=== PATIENT | female | born 1970 | race African-American/Black ===

== ENCOUNTER 2017-09-28 11:57 | Observation (INO) | payer BC ==
--- NOTE | 2017-09-28 12:23 | ER Document Report ---
ED Medical Screen (RME) - General Chief Complaint: Chest Pain Stated Complaint: CHEST PRESSURE Time Seen by Provider: 09/28/17 12:19 Notes: 46-year-old female patient with chest pain off and on for months, worse today. Today felt heavier in the anterior chest with pain going to his left shoulder. Strong family history hypertension and 2 grandparents that in their 40s from MIs. I have greeted and performed a rapid initial assessment of this patient. A comprehensive ED assessment and evaluation of the patient, analysis of test results and completion of the medical decision making process will be conducted by additional ED providers. TRAVEL OUTSIDE OF THE [place] IN LAST 30 DAYS: No - Related Data Allergies/Adverse Reactions: No Known Allergies Allergy (Verified 09/28/17 11:58) Past Medical History - Social History Chew tobacco use (# tins/day): No Frequency of alcohol use: None Drug Abuse: None Pulmonary Medical History: Reports: Hx Bronchitis Renal/ Medical History: Denies: Hx Peritoneal Dialysis Musculoskeltal Medical History: Reports Hx Musculoskeletal Trauma - recent fx right foot Traumatic Medical History: Reports: Hx Fractures - right foot Past Surgical History: Reports: Hx Hysterectomy, Hx Tubal Ligation - Immunizations Hx Diphtheria, Pertussis, Tetanus Vaccination: Yes Physical Exam - Vital signs Vitals: Temp Pulse Resp BP Pulse Ox 99.2 F 70 16 142/72 H 98 09/28/17 12:11 09/28/17 12:11 09/28/17 12:11 09/28/17 12:11 09/28/17 12:11 Course - Vital Signs Vital signs: Temp Pulse Resp BP Pulse Ox 99.2 F 70 16 142/72 H 98 09/28/17 12:11 09/28/17 12:11 09/28/17 12:11 09/28/17 12:11 09/28/17 12:11
--- NOTE | 2017-09-28 12:36 | EKG REPORT ---
SEVERITY:- ABNORMAL ECG - SINUS RHYTHM LEFT AXIS DEVIATION PROBABLE LEFT VENTRICULAR HYPERTROPHY : Confirmed by: Fatmata Abrams MD 28-Sep-2017 12:35:15
[2017-09-28 12:46] LABS: ABSOLUTE BASOPHILS # (AUTO) 0.1 10^3/uL (0.0-0.2); ABSOLUTE EOSINOPHILS # (AUTO) 0.2 10^3/uL (0.0-0.6); ABSOLUTE LYMPHOCYTES (AUTO) 2.3 10^3/uL (0.5-4.7); ABSOLUTE MONOCYTES (AUTO) 0.3 10^3/uL (0.1-1.4); ABSOLUTE NEUT (AUTO) 2.5 10^3/uL (1.7-8.2); BASOPHILS % (AUTO) 1.7 % (0-2); EOSINOPHILS % (AUTO) 3.2 % (0-6); HEMATOCRIT 38.2 % (36.0-47.0); HEMOGLOBIN 12.5 g/dL (12.0-15.5); LYMPHOCYTES % (AUTO) 42.4 % (13-45); MEAN CORPUSCULAR HEMOGLOBIN 28.8 pg (27.0-33.4); MEAN CORPUSCULAR HGB CONC 32.7 g/dL (32.0-36.0); MEAN CORPUSCULAR VOLUME 88 fl (80-97); MONOCYTES % (AUTO) 6.3 % (3-13); PLATELET COUNT 237 10^3/uL (150-450); RED BLOOD COUNT 4.33 10^6/uL (3.72-5.28); RED CELL DISTRIBUTION WIDTH 14.5 % (11.5-14.0); SEGMENTED NEUTROPHILS % (AUTO) 46.4 % (42-78); TOTAL CELLS COUNTED % (AUTO) 100 %; WHITE BLOOD COUNT 5.4 10^3/uL (4.0-10.5)
[2017-09-28 13:11] LABS: ALANINE AMINOTRANSFERASE 25 U/L (9-52); ALBUMIN 3.7 g/dL (3.5-5.0); ALKALINE PHOSPHATASE 53 U/L (38-126); ANION GAP 7 (5-19); ASPARTATE AMINO TRANSFERASE 16 U/L (14-36); BILIRUBIN,DIRECT 0.3 mg/dL (0.0-0.4); BILIRUBIN,TOTAL 0.4 mg/dL (0.2-1.3); BLOOD UREA NITROGEN 9 mg/dL (7-20); CALCIUM 9.1 mg/dL (8.4-10.2); CARBON DIOXIDE 32 mmol/L (22-30); CHLORIDE 106 mmol/L (98-107); CREATINE KINASE 209 U/L (30-135); GLUCOSE 91 mg/dL (75-110); POTASSIUM 4.1 mmol/L (3.6-5.0); SODIUM 145.4 mmol/L (137-145); TOTAL PROTEIN 6.7 g/dL (6.3-8.2)
--- NOTE | 2017-09-28 13:32 | RADIOLOGY REPORT (SQ) ---
EXAM DESCRIPTION: CHEST 2 VIEWS COMPLETED DATE/TIME: 09/28/2017 12:43 pm REASON FOR STUDY: Chest pain COMPARISON: March 2016 EXAM PARAMETERS: NUMBER OF VIEWS: two views TECHNIQUE: Digital Frontal and Lateral radiographic views of the chest acquired. RADIATION DOSE: NA LIMITATIONS: none FINDINGS: LUNGS AND PLEURA: No opacities, masses or pneumothorax. No pleural effusion. MEDIASTINUM AND HILAR STRUCTURES: No masses or contour abnormalities. HEART AND VASCULAR STRUCTURES: Heart normal size. No evidence for failure. BONES: No acute findings. HARDWARE: None in the chest. OTHER: No other significant finding. IMPRESSION: NO ACUTE RADIOGRAPHIC FINDING IN THE CHEST. TECHNICAL DOCUMENTATION: JOB ID: [id number] [employer]- All Rights Reserved Reading location - IP/workstation name: [email or web address]
--- NOTE | 2017-09-28 13:56 | ER Document Report ---
ED Cardiac - General Chief Complaint: Chest Pain Stated Complaint: CHEST PRESSURE Time Seen by Provider: 09/28/17 12:19 Mode of Arrival: Ambulatory Information source: Patient Notes: 46 yo ex smoker, non htn (recently told she had mild HTN- no tx) non dm, non CAD,non asthma female c/o chest pressure like someone sitting on my chest and left shoulder pain since 9 pasha this morning while woring waling round at [employer] butting lable on things (not strenuous) had to really take deep breath to feel like she had enouh breath. Few months has had exertional pressure on chest and feels like heart skips a beat from walking from car to front of store. this was Much heavier than ever had before. fHX: [place] 40's- grandma and uncles. PCP: [facility]. Never had stress of cardiac work up. Took 324mg asa at [facility] and sent to ER for cardiac evaluation. Pt is willing to be admitted if indicated. No swelling. TRAVEL OUTSIDE OF THE [place] IN LAST 30 DAYS: No - Related Data Allergies/Adverse Reactions: No Known Allergies Allergy (Verified 09/28/17 11:58) Past Medical History - General Information source: Patient - Social History Smoking Status: Former Smoker Chew tobacco use (# tins/day): No Frequency of alcohol use: None Drug Abuse: None Lives with: Family Family History: Arthritis, CAD, CVA, DM, Hyperlipidemia, Hypertension, Malignancy Patient has suicidal ideation: No Patient has homicidal ideation: No Pulmonary Medical History: Reports: Hx Bronchitis Renal/ Medical History: Denies: Hx Peritoneal Dialysis Musculoskeltal Medical History: Reports Hx Musculoskeletal Trauma - recent fx right foot Traumatic Medical History: Reports: Hx Fractures - right foot Past Surgical History: Reports: Hx Hysterectomy, Hx Tubal Ligation - Immunizations Hx Diphtheria, Pertussis, Tetanus Vaccination: Yes Review of Systems - Review of Systems Constitutional: No symptoms reported EENT: No symptoms reported Cardiovascular: See HPI Respiratory: See HPI Gastrointestinal: No symptoms reported Genitourinary: No symptoms reported Female Genitourinary: No symptoms reported Musculoskeletal: No symptoms reported Skin: No symptoms reported Hematologic/Lymphatic: No symptoms reported Neurological/Psychological: No symptoms reported Physical Exam - Vital signs Vitals: Temp Pulse Resp BP Pulse Ox 99.2 F 70 16 142/72 H 98 09/28/17 12:11 09/28/17 12:11 09/28/17 12:11 09/28/17 12:11 09/28/17 12:11 Interpretation: Normal - General General appearance: Appears well, Alert - HEENT Head: Normocephalic, Atraumatic Eyes: Normal Pupils: PERRL - Respiratory Respiratory status: No respiratory distress Chest status: Nontender Breath sounds: Normal Chest palpation: Normal - Cardiovascular Rhythm: Regular Heart sounds: Normal auscultation Murmur: No - Abdominal Inspection: Normal Distension: No distension Bowel sounds: Normal Tenderness: Nontender Organomegaly: No organomegaly - Back Back: Normal, Nontender. No: CVA tenderness - Extremities General upper extremity: Normal inspection, Nontender, Normal color, Normal ROM , Normal temperature General lower extremity: Normal inspection, Nontender, Normal color, Normal ROM , Normal temperature, Normal weight bearing. No: Dominick's sign - Neurological Neuro grossly intact: Yes Cognition: Normal Orientation: AAOx4 Edda Coma Scale Eye Opening: Spontaneous [place] Coma Scale Verbal: Oriented [place] Coma Scale Motor: Obeys Commands Edda Coma Scale Total: 15 Speech: Normal Motor strength normal: LUE, RUE, LLE, RLE Sensory: Normal - Psychological Associated symptoms: Normal affect, Normal mood - Skin Skin Temperature: Warm Skin Moisture: Dry Skin Color: Normal Skin irregularity: negative: Rash Course - Re-evaluation Re-evalutation: 09/28/17 15:19 First troponin is negative second troponin is ordered for 4:00. Her EKG shows normal sinus rhythm with QT 416. I spoke with hospitalist who will admit to telemetry unit. - Vital Signs Vital signs: Temp Pulse Resp BP Pulse Ox 98.3 F 70 20 115/44 L 100 09/28/17 18:51 09/28/17 19:49 09/28/17 18:51 09/28/17 18:51 09/28/17 18:51 - Laboratory Result Diagrams: 09/28/17 12:33 09/28/17 12:33 Laboratory results interpreted by me: 09/28/17 09/28/17 12:33 12:33 RDW 14.5 H Sodium 145.4 H Carbon Dioxide 32 H Creatine Kinase 209 H Discharge - Discharge Clinical Impression: Chest pain Qualifiers: Chest pain type: unspecified Qualified Code(s): R07.9 - Chest pain, unspecified Condition: Stable Disposition: ADMITTED OBSERVATION Admitting Provider: Hospitalist Unit Admitted: Telemetry
[2017-09-28] MEDS ORDERED: TEMAZEPAM 15 MG CAPSULE PO PRN (16:26)
[2017-09-28] MEDS ORDERED: ONDANSETRON HCL INJ/PF 4 MG/2 ML SDV IV PRN (16:26)
[2017-09-28] MEDS ORDERED: ALBUTEROL SULFATE 0.083% NEB 2.5 MG/3 ML AMPUL NEB PRN (16:26)
[2017-09-28] MEDS ORDERED: OXYCODONE-ACETAMINOPHEN 5-325 MG TABLET PO PRN (16:26)
--- NOTE | 2017-09-28 17:59 | PDOC H&P ---
History of Present Illness Admission Date/PCP: 09/28/17 16:32 ABIGAIL GIBBONS MD History of Present Illness: LIYAH LIEBERMAN is a 46 year old female who presents to emergency room with complaints of chest pain which started while she was at work this morning. 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 She says the pain did not radiate to her left shoulder but denied any associated nausea or vomiting. She gives prior history of occasional chest pain but she said this 1 was different and scary so she decided to come to the emergency room to get evaluated. She gives a family history of coronary artery disease otherwise she denies any significant medical history or problems Past Medical History Pulmonary Medical History: Reports: Bronchitis Past Surgical History Past Surgical History: Reports: None, Hysterectomy, Tubal Ligation Social History Information Source: Patient Lives with: Family Smoking Status: Former Smoker - Advance Directive Resuscitation Status: Full Code Family History Family History: Arthritis, CAD, CVA, DM, Hyperlipidemia, Hypertension, Malignancy Parental Family History Reviewed: Yes Children Family History Reviewed: Yes Sibling(s) Family History Reviewed.: Yes Medication/Allergy Home Medications: No Home Medications 09/28/17 Allergies/Adverse Reactions: No Known Allergies Allergy (Verified 09/28/17 11:58) Review of Systems All systems: reviewed and no additional remarkable complaints except as stated Physical Exam Vital Signs: Temp Pulse Resp BP Pulse Ox 99.2 F 70 16 111/59 L 99 09/28/17 12:11 09/28/17 12:11 09/28/17 16:07 09/28/17 16:07 09/28/17 16:07 General appearance: PRESENT: no acute distress, morbidly obese, well-developed, well-nourished Head exam: PRESENT: atraumatic, normocephalic Eye exam: PRESENT: conjunctiva pink, EOMI, PERRLA. ABSENT: scleral icterus Ear exam: PRESENT: normal external ear exam Mouth exam: PRESENT: moist, tongue midline Neck exam: ABSENT: carotid bruit, JVD, lymphadenopathy, thyromegaly Respiratory exam: PRESENT: clear to auscultation syed. ABSENT: rales, rhonchi, wheezes Cardiovascular exam: PRESENT: RRR. ABSENT: diastolic murmur, rubs, systolic murmur Pulses: PRESENT: normal dorsalis pedis pul Vascular exam: PRESENT: normal capillary refill GI/Abdominal exam: PRESENT: normal bowel sounds, soft. ABSENT: distended, guarding, mass, organolmegaly, rebound, tenderness Rectal exam: PRESENT: deferred Extremities exam: PRESENT: full ROM. ABSENT: calf tenderness, clubbing, pedal edema Neurological exam: PRESENT: alert, awake, oriented to person, oriented to place , oriented to time, oriented to situation, CN II-XII grossly intact. ABSENT: motor sensory deficit Psychiatric exam: PRESENT: appropriate affect, normal mood. ABSENT: homicidal ideation, suicidal ideation Skin exam: PRESENT: dry, intact, warm. ABSENT: cyanosis, rash Results Laboratory Results: 09/28/17 12:33 09/28/17 12:33 MCV 88 fl (80-97) 09/28/17 12:33 MCH 28.8 pg (27.0-33.4) 09/28/17 12:33 MCHC 32.7 g/dL (32.0-36.0) 09/28/17 12:33 RDW 14.5 % (11.5-14.0) H 09/28/17 12:33 Seg Neutrophils % 46.4 % (42-78) 09/28/17 12:33 Lymphocytes % 42.4 % (13-45) 09/28/17 12:33 Monocytes % 6.3 % (3-13) 09/28/17 12:33 Eosinophils % 3.2 % (0-6) 09/28/17 12:33 Basophils % 1.7 % (0-2) 09/28/17 12:33 Absolute Neutrophils 2.5 10^3/uL (1.7-8.2) 09/28/17 12:33 Absolute Lymphocytes 2.3 10^3/uL (0.5-4.7) 09/28/17 12:33 Absolute Monocytes 0.3 10^3/uL (0.1-1.4) 09/28/17 12:33 Absolute Eosinophils 0.2 10^3/uL (0.0-0.6) 09/28/17 12:33 Absolute Basophils 0.1 10^3/uL (0.0-0.2) 09/28/17 12:33 Chloride 106 mmol/L (98-107) 09/28/17 12:33 Carbon Dioxide 32 mmol/L (22-30) H 09/28/17 12:33 Anion Gap 7 (5-19) 09/28/17 12:33 Est GFR ( Amer) > 60 (>60) 09/28/17 12:33 Est GFR (Non-Af Amer) > 60 (>60) 09/28/17 12:33 Glucose 91 mg/dL (75-110) 09/28/17 12:33 Calcium 9.1 mg/dL (8.4-10.2) 09/28/17 12:33 Total Bilirubin 0.4 mg/dL (0.2-1.3) 09/28/17 12:33 AST 16 U/L (14-36) 09/28/17 12:33 ALT 25 U/L (9-52) 09/28/17 12:33 Alkaline Phosphatase 53 U/L (38-126) 09/28/17 12:33 Total Protein 6.7 g/dL (6.3-8.2) 09/28/17 12:33 Albumin 3.7 g/dL (3.5-5.0) 09/28/17 12:33 09/28/17 09/28/17 09/28/17 12:33 12:33 15:55 Creatine Kinase 209 H Troponin I < 0.012 < 0.012 Impressions: Chest X-Ray 09/28/17 12:24 IMPRESSION: NO ACUTE RADIOGRAPHIC FINDING IN THE CHEST. Assessment & Plan - Diagnosis (1) Chest pain Qualifiers: Chest pain type: unspecified Qualified Code(s): R07.9 - Chest pain, unspecified Is this a current diagnosis for this admission?: Yes Plan: Serial cardiac enzymes will be obtained as well as a stress test in a.m. if negative EKG shows no acute findings although there is probable evidence of LVH (2) Morbidly obese Is this a current diagnosis for this admission?: Yes - Time Time Spent: 30 to 50 Minutes Medications reviewed and adjusted accordingly: Yes Anticipated discharge: Home Within: within 24 hours - Inpatient Certification Based on my medical assessment, after consideration of the patient's comorbidities, presenting symptoms, or acuity I expect that the services needed warrant INPATIENT care.: No - Plan Summary Plan Summary: Patient is being admitted under observation as she is expected to stay less than 2 midnights
[2017-09-29 05:35] LABS: CHOLESTEROL 147.35 mg/dL (0-200); TRIGLYCERIDES 96 mg/dL (<150)
[2017-09-29 05:46] LABS: DIRECT LDL 98 mg/dL (<100)
[2017-09-29] MEDS: DOCUSATE SODIUM 100 MG CAPSULE PO SCH (10:38)
[2017-09-29] MEDS: ENOXAPARIN SODIUM INJ 40 MG/0.4 ML DISP.SYRIN SUBCUT SCH (10:40)
[2017-09-29] MEDS ORDERED: REGADENOSON INJ 0.4 MG/5 ML DISP.SYRIN IV ONE (13:12)
--- NOTE | 2017-09-29 14:44 | PDOC PROGRESS REPORT ---
Subjective Progress Note for:: 09/29/17 Subjective:: Admitted with chest pain which is completely resolved. Cardiac enzymes have been negative and she had a partial stress test today completed in a.m. Reason For Visit: CHEST PAIN Physical Exam Vital Signs: Temp Pulse Resp BP Pulse Ox 97.9 F 72 14 146/76 H 96 09/29/17 12:00 09/29/17 12:00 09/29/17 12:00 09/29/17 12:00 09/29/17 12:00 Intake & Output 09/28/17 09/29/17 09/30/17 06:59 06:59 06:59 Intake Total 360 Balance 360 Weight 151.6 kg General appearance: PRESENT: no acute distress, well-developed, well-nourished Head exam: PRESENT: atraumatic, normocephalic Eye exam: PRESENT: conjunctiva pink, EOMI, PERRLA. ABSENT: scleral icterus Ear exam: PRESENT: normal external ear exam Mouth exam: PRESENT: moist, tongue midline Neck exam: ABSENT: carotid bruit, JVD, lymphadenopathy, thyromegaly Respiratory exam: PRESENT: clear to auscultation syed. ABSENT: rales, rhonchi, wheezes Cardiovascular exam: PRESENT: RRR. ABSENT: diastolic murmur, rubs, systolic murmur Pulses: PRESENT: normal dorsalis pedis pul Vascular exam: PRESENT: normal capillary refill GI/Abdominal exam: PRESENT: normal bowel sounds, soft. ABSENT: distended, guarding, mass, organolmegaly, rebound, tenderness Rectal exam: PRESENT: deferred Extremities exam: PRESENT: full ROM. ABSENT: calf tenderness, clubbing, pedal edema Neurological exam: PRESENT: alert, awake, oriented to person, oriented to place , oriented to time, oriented to situation, CN II-XII grossly intact. ABSENT: motor sensory deficit Psychiatric exam: PRESENT: appropriate affect, normal mood. ABSENT: homicidal ideation, suicidal ideation Skin exam: PRESENT: dry, intact, warm. ABSENT: cyanosis, rash Results Laboratory Results: 09/29/17 04:31 Triglycerides 96 Cholesterol 147.35 LDL Cholesterol Direct 98 VLDL Cholesterol 19.0 HDL Cholesterol 37 L 09/28/17 22:13 Troponin I < 0.012 Impressions: Chest X-Ray 09/28/17 12:24 IMPRESSION: NO ACUTE RADIOGRAPHIC FINDING IN THE CHEST. Assessment & Plan - Diagnosis (1) Chest pain Qualifiers: Chest pain type: unspecified Qualified Code(s): R07.9 - Chest pain, unspecified Is this a current diagnosis for this admission?: Yes Plan: Follow-up with stress test in a.m. Patient is currently chest pain-free (2) Morbidly obese Is this a current diagnosis for this admission?: Yes Plan: Weight loss advised - Time Time Spent with patient: 15-24 minutes Medications reviewed and adjusted accordingly: Yes Anticipated discharge: Home Within: within 36 hours - Inpatient Certification Based on my medical assessment, after consideration of the patient's comorbidities, presenting symptoms, or acuity I expect that the services needed warrant INPATIENT care.: Yes Medical Necessity: Risk of Complication if Not Cared For in Hospital
[2017-09-29] MEDS: ACETAMINOPHEN 325 MG TABLET PO PRN ×2 (14:51→20:13)
--- NOTE | 2017-09-30 14:06 | PDOC PROGRESS REPORT ---
Subjective Progress Note for:: 09/30/17 Subjective:: Admitted with chest pain which is completely resolved. Cardiac enzymes have been negative and she means pain-free however stress test seem to indicate a moderate reversible ischemia in the inferior chest wall. I have discussed with Dr. Abrams and plans to follow-up with an outpatient cardiac catheterization with Dr. Olivera whose office will contact her for further information. In the interim I will start patient on aspirin as well as nitrate and starting as well as a beta-noah and I think we will watch her overnight and DC in a.m. if she remains stable. Reason For Visit: CHEST PAIN Physical Exam Vital Signs: Temp Pulse Resp BP Pulse Ox 98.2 F 61 16 125/72 97 09/30/17 07:28 09/30/17 08:52 09/30/17 08:52 09/30/17 07:28 09/30/17 08:52 Intake & Output 09/29/17 09/30/17 10/01/17 06:59 06:59 06:59 Intake Total 360 1665 Balance 360 1665 Weight 151.6 kg 153.6 kg 153.6 kg General appearance: PRESENT: no acute distress, well-developed, well-nourished Head exam: PRESENT: atraumatic, normocephalic Eye exam: PRESENT: conjunctiva pink, EOMI, PERRLA. ABSENT: scleral icterus Ear exam: PRESENT: normal external ear exam Mouth exam: PRESENT: moist, tongue midline Neck exam: ABSENT: carotid bruit, JVD, lymphadenopathy, thyromegaly Respiratory exam: PRESENT: clear to auscultation syed. ABSENT: rales, rhonchi, wheezes Cardiovascular exam: PRESENT: RRR. ABSENT: diastolic murmur, rubs, systolic murmur Pulses: PRESENT: normal dorsalis pedis pul Vascular exam: PRESENT: normal capillary refill GI/Abdominal exam: PRESENT: normal bowel sounds, soft. ABSENT: distended, guarding, mass, organolmegaly, rebound, tenderness Rectal exam: PRESENT: deferred Extremities exam: PRESENT: full ROM. ABSENT: calf tenderness, clubbing, pedal edema Neurological exam: PRESENT: alert, awake, oriented to person, oriented to place , oriented to time, oriented to situation, CN II-XII grossly intact. ABSENT: motor sensory deficit Psychiatric exam: PRESENT: appropriate affect, normal mood. ABSENT: homicidal ideation, suicidal ideation Skin exam: PRESENT: dry, intact, warm. ABSENT: cyanosis, rash Results Laboratory Results: 09/28/17 22:13 Troponin I < 0.012 Impressions: Chest X-Ray 09/28/17 12:24 IMPRESSION: NO ACUTE RADIOGRAPHIC FINDING IN THE CHEST. Assessment & Plan - Diagnosis (1) Chest pain Qualifiers: Chest pain type: unspecified Qualified Code(s): R07.9 - Chest pain, unspecified Is this a current diagnosis for this admission?: Yes Plan: With positive stress test for outpatient catheterization. (2) Morbidly obese Is this a current diagnosis for this admission?: Yes Plan: Patient advised to lose weight (3) Coronary artery disease Qualifiers: Coronary Disease-Associated Artery/Lesion type: [place] artery Is this a current diagnosis for this admission?: Yes Plan: Possible. For outpatient cardiac catheterization as specified above - Time Time Spent with patient: 15-24 minutes Medications reviewed and adjusted accordingly: Yes Anticipated discharge: Home Within: within 24 hours - Inpatient Certification Based on my medical assessment, after consideration of the patient's comorbidities, presenting symptoms, or acuity I expect that the services needed warrant INPATIENT care.: Yes Medical Necessity: Need For Continuous Telemetry Monitoring
[2017-09-30] MEDS: DOCUSATE SODIUM 100 MG CAPSULE PO SCH (14:33)
[2017-09-30] MEDS: ENOXAPARIN SODIUM INJ 40 MG/0.4 ML DISP.SYRIN SUBCUT SCH (14:36)
[2017-09-30] MEDS ORDERED: ISOSORBIDE DINITRATE 5 MG TABLET PO ONE (15:00)
[2017-09-30] MEDS ORDERED: ASPIRIN 81 MG TABLET, CHEWABLE PO ONE (15:00)
[2017-09-30] MEDS ORDERED: METOPROLOL SUCCINATE 25 MG TAB.SR.24H PO ONE (15:00)
--- NOTE | 2017-09-30 18:33 | Progress Note ---
Provider Note Provider Note: Chest pain likely secondary to underlying CAD, Angina
[2017-09-30] MEDS: ISOSORBIDE DINITRATE 5 MG TABLET PO SCH (21:22)
[2017-09-30] MEDS ORDERED: ATORVASTATIN CALCIUM 20 MG TABLET PO SCH (22:00)
[2017-09-30] MEDS ORDERED: METOPROLOL SUCCINATE 25 MG TAB.SR.24H PO SCH (22:00)
[2017-10-01] MEDS ORDERED: METOPROLOL SUCCINATE 25 MG TAB.SR.24H PO SCH (06:00)
[2017-10-01] MEDS: DOCUSATE SODIUM 100 MG CAPSULE PO SCH (09:35)
[2017-10-01] MEDS: ISOSORBIDE DINITRATE 5 MG TABLET PO SCH (09:35)
[2017-10-01] MEDS ORDERED: ASPIRIN 81 MG TABLET, CHEWABLE PO SCH (10:00)
--- NOTE | 2017-10-01 11:27 | PDOC DISCHARGE SUMMARY ---
General - Admit/Disc Date/PCP Admission Date/Primary Care Provider: 09/28/17 16:32 ABIGAIL GIBBONS MD Discharge Date: 10/01/17 - Discharge Diagnosis (1) Chest pain Is this a current diagnosis for this admission?: Yes Summary: Possibly angina secondary to CAD (2) Morbidly obese Is this a current diagnosis for this admission?: Yes (3) Coronary artery disease Is this a current diagnosis for this admission?: Yes - Additional Information Resuscitation Status: Full Code Discharge Diet: Cardiac Discharge Activity: Activity As Tolerated Prescriptions: Atorvastatin Calcium [Lipitor 20 mg Tablet] 20 mg PO QHS #30 tablet Isosorbide Dinitrate [Isordil Titradose 5 mg Tablet] 5 mg PO Q12 #60 tablet Metoprolol Succinate [Toprol Xl 25 mg Tab.sr] 12.5 mg PO Q12@0600,1800 #60 tab.sr.24h Home Medications: Esomeprazole Magnesium [Nexium] 20 mg PO DAILYP PRN 09/28/17 Aspirin [Aspirin 81 mg Chewable Tablet] 81 mg PO DAILY tab.chew 10/01/17 Atorvastatin Calcium [Lipitor 20 mg Tablet] 20 mg PO QHS #30 tablet 10/01/17 Isosorbide Dinitrate [Isordil Titradose 5 mg Tablet] 5 mg PO Q12 #60 tablet Metoprolol Succinate [Toprol Xl 25 mg Tab.sr] 12.5 mg PO Q12@0600,1800 #60 tab.sr.24h 10/01/17 History of Present Illness Patient complains of: Chest pain radiating to left shoulder History of Present Illness: LIYAH LIEBERMAN is a 46 year old female who presents to emergency room with complaints of chest pain which started while she was at work this morning. 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 She says the pain did not radiate to her left shoulder but denied any associated nausea or vomiting. She gives prior history of occasional chest pain but she said this 1 was different and scary so she decided to come to the emergency room to get evaluated. She gives a family history of coronary artery disease otherwise she denies any significant medical history or problems Hospital Course Hospital Course: Patient was admitted with chest pain which was somewhat atypical. She had serial cardiac enzymes done and then ultimately had Cardiolite stress test done. This revealed a stable defect in the inferior wall and so patient was set up for an outpatient cardiac catheterization at [facility]. Chest pain had resolved within a few hours or even prior to admission and she remained chest pain-free. She was started on aspirin as well as statin and beta-noah and that she will follow-up with cardiology for further evaluation and management. Physical Exam Vital Signs: Temp Pulse Resp BP Pulse Ox 98.2 F 67 16 123/70 99 10/01/17 07:28 10/01/17 07:28 10/01/17 07:28 10/01/17 07:28 10/01/17 07:28 Intake & Output 09/30/17 10/01/17 10/02/17 06:59 06:59 06:59 Intake Total 1665 1185 Balance 1665 1185 Weight 153.6 kg 150.5 kg General appearance: PRESENT: no acute distress, well-developed, well-nourished Head exam: PRESENT: atraumatic, normocephalic Eye exam: PRESENT: conjunctiva pink, EOMI, PERRLA. ABSENT: scleral icterus Ear exam: PRESENT: normal external ear exam Mouth exam: PRESENT: moist, tongue midline Neck exam: ABSENT: carotid bruit, JVD, lymphadenopathy, thyromegaly Respiratory exam: PRESENT: clear to auscultation syed. ABSENT: rales, rhonchi, wheezes Cardiovascular exam: PRESENT: RRR. ABSENT: diastolic murmur, rubs, systolic murmur Pulses: PRESENT: normal dorsalis pedis pul Vascular exam: PRESENT: normal capillary refill GI/Abdominal exam: PRESENT: normal bowel sounds, soft. ABSENT: distended, guarding, mass, organolmegaly, rebound, tenderness Rectal exam: PRESENT: deferred Extremities exam: PRESENT: full ROM. ABSENT: calf tenderness, clubbing, pedal edema Neurological exam: PRESENT: alert, awake, oriented to person, oriented to place , oriented to time, oriented to situation, CN II-XII grossly intact. ABSENT: motor sensory deficit Psychiatric exam: PRESENT: appropriate affect, normal mood. ABSENT: homicidal ideation, suicidal ideation Skin exam: PRESENT: dry, intact, warm. ABSENT: cyanosis, rash Results Laboratory Results: 09/28/17 22:13 Troponin I < 0.012 Impressions: Chest X-Ray 09/28/17 12:24 IMPRESSION: NO ACUTE RADIOGRAPHIC FINDING IN THE CHEST. Qualifiers - * PATIENT BEING DISCHARGED WITH ANY OF THE FOLLOWING DIAGNOSIS: No Plan Time Spent: Less than 30 Minutes
[2017-10-01 12:20] VITALS: BP 121/54
--- NOTE | 2017-10-04 21:40 | DRAGON STRESS TEST REPORT ---
2 Day Intravenous Lexiscan Cardiolite stress test using single photon emmision computerized tomography. Date of Resting procedure: 09/30/2017. Date of Stress procedure: 09/29/2017. Ordering Provider: Dr. PATEL Indication: Chest pain. Coronary risk factors: Age and family history of coronary artery disease. Resting EKG: Sinus Rhythm. Poor R-wave progression leads V1 to V6. Stress EKG: No changes of ischemia. The patient no chest pain or discomfort, and there were no arrhythmias seen. Reason for termination: Protocol. Conclusions: Normal EKG and hemodynamic response to IV Lexiscan. Nuclear data: On 09/29/17 the patient was given intravenous Lexiscan at a dose of 0.4 mg in 5 mL intravenously, followed by flush with normal saline. Subsequently the stress dose of 41.9 millicuries of technetium 99m sestamibi was injected intravenously. As per protocol stress gated images were obtained. On 09/29/17 At rest the patient was given 40.2 millicuries of technetium 99m sestamibi injected intravenously. As per protocol rest non gated SPECT images were obtained. Nuclear interpretation: Review of images showed that there was severe breast attenuation artifact. There is a moderate perfusion defect involving the inferior wall in the stress images which normalizes in the rest images. This inferior wall had normal motion contraction and thickening the gated study. There was a small area of perfusion defect in the stress images involving the left ventricular apex. This perfusion defect normalized in the rest images. This area also had normal motion contraction and thickening the gated study. The rest of the segments of the myocardium had normal perfusion at rest, and normal perfusion post stress with IV Lexiscan. All segments of the myocardium had normal motion, contraction, and thickening by gated study. T. I D. ratio was normal at 1.14. Computer read rest, and stress left ventricular ejection fraction were 63 %, and a 5 %, respectively. Conclusion: 1. There is scintigraphic evidence of Lexiscan induced moderate myocardial ischemia, involving the inferior wall, and a small area of reversible ischemia involving the left ventricular apex. 2. There is no scintigraphic evidence of myocardial infarction/scar. Recommendations: 1. Aggressive treatment of coronary artery disease including aspirin, beta blockers, statins, and nitrates if no contraindication, and recommend patient to have a cardiac catheterization to define coronary anatomy, and to look for revascularization options. 2.Aggressive risk factor modification, and treating the underlying co- morbidities. Since the patient is pain-free, would maximize medical treatment of coronary artery disease, and scheduled the patient for outpatient cardiac catheterization in a tertiary care center at patient's cardiac center of choice. This was discussed with the attending physician. The patient was also given my cell phone number to call me if she should have any recurrence of chest pain or discomfort. KAM
== END 2017-10-01 13:15 | disposition home or self-care (01) ==
LOC: ER 11:57 → EH 16:32 → 4N 18:27
PROVIDERS: ADMIT Internal Medicine; ATTEND Internal Medicine
DX: R07.9 Chest pain, unspecified (principal); I25.10 Atherosclerotic heart disease of native coronary artery without angina pectoris; E66.01 Morbid (severe) obesity due to excess calories; Z68.43 Body mass index [BMI] 50.0-59.9, adult; Z79.899 Other long term (current) drug therapy; Z79.82 Long term (current) use of aspirin; Z87.891 Personal history of nicotine dependence; Z82.49 Family history of ischemic heart disease and other diseases of the circulatory system
CPT/HCPCS: 93005; 99285; 36415 ×2; 82550; 85025; 80053; 84484; 80061; 93017; 71046; 78452; 93010; G0378 ×5; A9500; J2785; J3490 ×5; J1650 ×2; Q9969